=== PATIENT | female | born 1930 | race Caucasian/White ===

== ENCOUNTER 2018-11-13 09:46 | Emergency (ER) | payer OTHER, BC ==
[~2018-11-13] VITALS: Ht 154.9 cm; Wt 72.6 kg
[~2018-11-13 09:46] MED LIST: ALENDRONATE SODI5 MG PO; CLOPIDOGREL75 MG PO; HUMALOG100 UNIT/1 SUBQ; LANTUS100 UNIT/M SUBQ; LOPRESSOR25 PO; PREDNISONE 5 MG5 M1 PO; PROTONIX40 M1 PO; TRICOR145 MG PO
[2018-11-13] MEDS ORDERED: NORCO 5-325 TA1 EACH PO (12:00)
[2018-11-13 12:45] VITALS: BP 137/69
== END 2018-11-13 13:35 | disposition home or self-care (01) ==
LOC: ER 09:46
DX: S20.211A Contusion of right front wall of thorax, initial encounter (principal); S05.12XA Contusion of eyeball and orbital tissues, left eye, initial encounter; R91.8 Other nonspecific abnormal finding of lung field; I10 Essential (primary) hypertension; E11.40 Type 2 diabetes mellitus with diabetic neuropathy, unspecified; Z95.5 Presence of coronary angioplasty implant and graft; Z90.49 Acquired absence of other specified parts of digestive tract; Z90.710 Acquired absence of both cervix and uterus; Z79.4 Long term (current) use of insulin; Z88.8 Allergy status to other drugs, medicaments and biological substances; Z87.891 Personal history of nicotine dependence; W01.0XXA Fall on same level from slipping, tripping and stumbling without subsequent striking against object, initial encounter; Y92.89 Other specified places as the place of occurrence of the external cause; Y93.89 Activity, other specified; Y99.8 Other external cause status

== ENCOUNTER 2019-09-21 09:03 | Emergency (ER) | payer OTHER, BC ==
[~2019-09-21] VITALS: Ht 152.4 cm; Wt 68.0 kg
[~2019-09-21 09:03] MED LIST changes: +NORCO 5-325 TA1 EACH PO
[2019-09-21] MEDS ORDERED: ROSUVASTATIN CA20 MG PO (09:26)
[2019-09-21] MEDS ORDERED: ZETIA10 MG PO (09:26)
[2019-09-21] MEDS ORDERED: METAMUCIL1 EAC1 PO (09:27)
[2019-09-21] MEDS ORDERED: PNV 29-1 TABLE1 EACH PO (09:27)
[2019-09-21] MEDS ORDERED: VITAMIN D310 MCG PO (09:27)
[2019-09-21 09:36] LABS: ABSOLUTE NEUTROPHILS 6.2 thou/uL (1.4-8.2); BASOPHILS 0.4 % (0.0-2.0); EOSINOPHILS 1.4 % (0.0-3.0); HEMATOCRIT 43.3 % (37.0-47.0); HEMOGLOBIN 14.1 gm/dL (12.0-15.0); LYMPHOCYTES 25.4 % (24.0-44.0); MCH 29.9 pg (26.0-34.0); MCHC 32.7 g/dL (28.0-37.0); MCV 91.5 fL (80.0-100.0); MONOCYTES 5.9 % (1.0-8.0); PLATELET COUNT 247 thou/uL (150-400); POLYS 66.9 % (36.0-66.0); RBC 4.73 mil/uL (4.20-5.00); RDW 14.4 % (10.5-14.5); WBC 9.2 thou/uL (4.0-11.0)
[2019-09-21 09:45] LABS: CALCIUM 9.5 mg/dL (8.5-10.1); POTASSIUM 3.7 mmol/L (3.5-5.1)
[2019-09-21 09:51] LABS: ALBUMIN 3.8 g/dL (3.4-5.0); APTT 24.8 Seconds (24.5-32.8); PROTIME 10.4 Seconds (9.3-11.4); TOTAL PROTEIN 7.3 g/dL (6.4-8.2)
[2019-09-21] MEDS ORDERED: ANUSOL-HC25 MG RECTAL (12:16)
[2019-09-21 12:32] VITALS: BP 170/85
== END 2019-09-21 12:33 | disposition home or self-care (01) ==
LOC: ER 09:03
PROVIDERS: Emergency Medicine
DX: K62.5 Hemorrhage of anus and rectum (principal); R19.7 Diarrhea, unspecified